=== PATIENT | female | born 1975 | race Caucasian/White ===

== ENCOUNTER → 2016-10-14 | Outpatient (CLI) | payer MEDICAID ==
--- NOTE | 2016-10-14 16:55 | US ---
Endovaginal Pelvic Sonography Clinical History: 40-year-old female with an IUD, although the physician was unable to find the strin gs. Check positioning. The patient is no longer menstruating due to the Mirena contraceptive device , which has been present since January 2015. She is G6, P3. ICD-10 Diagnostic Code: T83.39XA. Technique: A curvilinear 5-megahertz transducer was initially used to sonographically evaluate the p ashish, using a partially distended urinary bladder as a window. To better assess the uterine archite cture and the adnexal structures, endovaginal pelvic sonography was also performed. A coronal recons tructed image through the endometrium was provided, as well as a cine clip. Comparison Study: Pelvic sonography, dated June 15, 2013. Findings: Transabdominal Pelvic Sonography: The uterus is anteverted and anteflexed, measuring 6.5 x 4.8 x 9.8 cm. The echogenic intrauterine device is seen, but will be assessed endovaginally. The right and l eft ovaries are also seen in a limited fashion using this modality. There is no free fluid. Endovaginal Pelvic Sonography: The endometrial thickness is normal, measuring 3.3 mm. The echogenic strings are seen near the cervix, and there is a benign nabothian cyst also present. There is an an terior fundal intramural fibroid, measuring 2.4 x 2.1 x 2.8 cm, and previously measuring 2.3 x 2.1 x 3.0 cm. The presence of the fibroid slightly distorts assessment of the IUD location. On coronal re constructed image #[id number], the longitudinally-oriented component of the IUD and the right sidearm are see n. On the sagittal cine clip, the left side arm is noted to abut the caudal margin of the intramural fibroid. The right ovary measures 4.4 x 2.2 x 4.8 cm, and the left ovary measures 2.9 x 2.7 x 3.8 c m. There are tiny follicles. Intraovarian vascular flow is documented. There are prominent serpent ine-shaped venous vascular collaterals seen in each adnexa, increasing with Valsalva maneuver. For e xample, on the right side, vessels measure up to 6.9 mm, on the left side measure up to 11.7 mm. The re is no solid adnexal mass, torsion, or free fluid. Intraovarian vascular flow is documented, with a resistive index in the right ovary measuring 0.52 and in the left ovary measuring 0.66. Impression: 1. The intrauterine device appears reasonably well-positioned, although there is some limitation in assessment of the left cephalad aspect because of the presence of a left fundal fibroid (the fibroid remains unchanged from June 25, 2013). 2. Normal appearance to the ovaries, with no solid or cystic adnexal mass, free fluid, or torsion. 3. Pelvic venous congestion.
== END ==
LOC: FIMAGING 10:22
PROVIDERS: ATTEND Family Medicine
DX: Z30.431 Encounter for routine checking of intrauterine contraceptive device (principal); D25.9 Leiomyoma of uterus, unspecified; I87.8 Other specified disorders of veins

== ENCOUNTER → 2018-11-30 | Outpatient (CLI) | payer MEDICAID | LOC: FIMAGING 14:55 ==